=== PATIENT | female | born 1990 | race Caucasian/White ===

== ENCOUNTER 2016-12-16 05:45 | Observation (INO) | payer OTHER ==
[~2016-12-16] VITALS: Ht 165.1 cm; Wt 78.9 kg
[2016-12-16 06:09] LABS: BASO % 0.5 % (0.0-2.0); EOS # 0.3 (0.0-0.7); EOS % 3.5 % (0-4.0); GRAN # 3.7 (1.4-6.5); GRAN % 45.1 % (42.2-75.2); HEMATOCRIT 38.7 % (37.0-47.0); HEMOGLOBIN 13.1 g/dl (12.5-16.0); LYMPH # 3.6 (1.2-3.4); LYMPH % 44.1 % (20.0-51.0); MEAN CELL VOLUME 89 fl (80.0-100.0); MEAN CORPUSCULAR HEMOGLOBIN 30 pg (27.0-31.0); MEAN CORPUSCULAR HGB CONC 34 g/dl (33.0-37.0); MEAN PLATELET VOLUME 10.4 fl (7.4-10.4); MONO # 0.6 (0.1-0.6); MONO % 6.7 % (1.7-9.3); PLATELET COUNT 279 K/mm3 (130-400); RED BLOOD COUNT 4.36 M/mm3 (4.10-5.30); REDCELL DISTRIBUTION WIDTH-CV 11.9 % (11.5-14.5); WHITE BLOOD COUNT 8.2 K/mm3 (4.8-10.8)
[2016-12-16 06:19] LABS: PARTIAL THROMBOPLASTIN TIME 27.7 SECONDS (26.0-37.0)
[2016-12-16] MEDS ORDERED: CELEXA 20MG20 MG/TAB PO (06:23)
[2016-12-16 06:28] LABS: ADJUSTED CALCIUM 8.8 mg/dL (8.4-10.2); ALANINE AMINOTRANSFERASE 20 U/L (9-52); ALBUMIN 4.3 gm/dL (3.5-5.0); ALKALINE PHOSPHATASE 49 U/L (50-136); ANION GAP 11 mmol/L (7-16); BILIRUBIN,TOTAL 0.5 mg/dL (0.0-1.0); BLOOD UREA NITROGEN 11 mg/dL (7-17); CARBON DIOXIDE 20 mmol/L (22-30); CHLORIDE 107 mmol/L (98-107); CREATININE, serum 0.78 mg/dL (0.52-1.25); GLUCOSE 88 mg/dL (74-106); POTASSIUM 3.4 mmol/L (3.4-5.0); SODIUM 138 mmol/L (137-145); TOTAL PROTEIN 7.7 gm/dL (6.4-8.2)
[2016-12-16 06:31] LABS: C-REACTIVE PROTEIN < 0.5 mg/dL (0.0-0.9)
[2016-12-16 12:01] LABS: PH 8 (5-8); URINE APPEARANCE Cloudy; URINE BACTERIA Rare /hpf; URINE BILIRUBIN Negative (NEGATIVE); URINE BLOOD Negative (NEGATIVE); URINE COLOR Yellow; URINE GLUCOSE Negative (NEGATIVE); URINE KETONE Negative (NEGATIVE); URINE RBC 0-2 /hpf; URINE UROBILINOGEN Negative (NEGATIVE)
[2016-12-16 12:23] LABS: AMPHETAMINE URINE NEGATIVE; BARBITURATES URINE NEGATIVE; BENZODIAZEPINES URINE NEGATIVE; BUPRENORPHINE URINE NEGATIVE; METHADONE URINE NEGATIVE; OPIATES URINE NEGATIVE; OXYCODONE URINE NEGATIVE; PHENCYCLIDINE URINE NEGATIVE; PROPOXYPHENE URINE NEGATIVE; THC CANNABINOIDS URINE NEGATIVE
[2016-12-16 15:39] VITALS: BP 103/45; PULSE 61; TEMP 98.8
[2016-12-16 15:43] VITALS: BP 103/45; PULSE 64; TEMP 98.8
[2016-12-16 20:49] VITALS: BP 100/45; PULSE 64; TEMP 98.4
[2016-12-17 00:02] VITALS: BP 106/48; PULSE 59; TEMP 98.2
[2016-12-17 04:05] VITALS: BP 103/46; PULSE 58; TEMP 98.1
[2016-12-17 08:02] VITALS: BP 105/46; PULSE 62; TEMP 98
[2016-12-17] MEDS ORDERED: VITAMIN B-2 100MG PO (13:45)
[2016-12-17] MEDS ORDERED: [UNRECOGNIZED DRUG - OTHER] PO (13:45)
[2016-12-17] MEDS ORDERED: FOLIC ACID 11 MG/TA1 PO (13:45)
[2016-12-17] MEDS ORDERED: MAG-G500 MG PO (13:46)
[2016-12-17] MEDS ORDERED: TOPAMAX 25MG25 M1 PO (13:56)
== END 2016-12-17 16:00 | disposition home or self-care (01) ==
LOC: COL.ER 05:45 → MEDICAL 10:44
PROVIDERS: Emergency Medicine
DX: G80.9 Cerebral palsy, unspecified (principal); G93.89 Other specified disorders of brain; G43.909 Migraine, unspecified, not intractable, without status migrainosus; F32.9 Major depressive disorder, single episode, unspecified; R47.01 Aphasia; Z87.820 Personal history of traumatic brain injury; Z80.8 Family history of malignant neoplasm of other organs or systems
CPT/HCPCS: A9585; G0378; J1170; J2250; J2405; J2550; J7030; J7040